=== PATIENT | female | born 1945 | race Caucasian/White ===

== ENCOUNTER 2019-01-18 12:17 | Emergency (ER) | payer MEDICARE, OTHER ==
[~2019-01-18] VITALS: Ht 163.8 cm; Wt 75.6 kg
--- NOTE | 2019-01-18 12:41 | EKG ---
[address] [address] Test Date: 2019-01-18 Test Time: 12:39:14 Pat Name: ANT BECKFORD Department: Room: Gender: F Supervisor Frame Assembly: DOUGIE : 1945 Requested By: JONNY BLEDSOE Order Number: [id number] Reading MD: Measurements Intervals [place] Rate: 77 P: 46 VT: 172 QRS: -8 QRSD: 82 T: 19 QT: 378 QTc: 430 Interpretive Statements SINUS RHYTHM LEFT ATRIAL ABNORMALITY LEFTWARD AXIS ABNORMAL ECG RI6.01 No previous ECG available for comparison
[2019-01-18] MEDS ORDERED: IV NORMAL SALINE 1,000ML 1,000 ML IV SCH (12:50)
[2019-01-18 13:23] LABS: BASO # 0.1 x10^3/uL (0.0-0.2); BASO % 1 % (0-3); EOS # 0.1 x10^3/uL (0.0-0.7); EOS % 2 % (0-3); HEMOGLOBIN 13.7 g/dL (12.0-15.5); LYMPH # 1.4 x10^3/uL (1.0-4.8); LYMPH % 16 % (24-48); MEAN CORPUSCULAR HEMOGLOBIN 30 pg (25-35); MEAN CORPUSCULAR HGB CONC 34 g/dL (31-37); MEAN CORPUSCULAR VOLUME 90 fL (79-100); MONO # 0.5 x10^3/uL (0.0-1.1); MONO % 6 % (0-9); NEUT # 6.6 x10^3uL (1.8-7.7); NEUT % 76 % (31-73); PLATELET COUNT 409 x10^3/uL (140-400); RED BLOOD COUNT 4.55 x10^6/uL (3.50-5.40); RED CELL DISTRIBUTION WIDTH 13.1 % (11.5-14.5); WHITE BLOOD COUNT 8.8 x10^3/uL (4.0-11.0)
[2019-01-18 13:37] LABS: ALBUMIN 3.5 g/dL (3.4-5.0); CALCIUM 8.8 mg/dL (8.5-10.1); CREATININE 0.8 mg/dL (0.6-1.0); DIRECT BILIRUBIN 0.1 mg/dL (0.0-0.2); GFR 70.3; MAGNESIUM 1.8 mg/dL (1.8-2.4); POTASSIUM 3.5 mmol/L (3.5-5.1); TOTAL BILIRUBIN 0.4 mg/dL (0.2-1.0); TOTAL PROTEIN 7.3 g/dL (6.4-8.2)
[2019-01-18 14:05] LABS: BACTERIA,URINE 0 /HPF (0-FEW); BILIRUBIN,URINE NEG (NEG); CLARITY,URINE CLEAR; COLOR,URINE YELLOW; GLUCOSE,URINE NEG (NEG); NITRITE,URINE NEG (NEG); RBC,URINE RARE /HPF (0-2); SQUAMOUS EPITHELIAL CELL,UR OCC /LPF; UROBILINOGEN,URINE 0.2 mg/dL (0.2 mg/dL); WBC,URINE RARE /HPF (0-4)
[2019-01-18] MEDS ORDERED: ONDA4TAB12 PO (14:26)
--- NOTE | 2019-01-18 14:26 | PHYS DOC ---
Past History Past Medical History: Constipation, COPD, High Cholesterol, Hypertension Past Surgical History: Other Additional Past Surgical Histo: left knee Alcohol Use: None Drug Use: None Adult General Chief Complaint Chief Complaint: DIZZY/LIGHT HEADED HPI HPI Patient is a 74-year-old female who presents with complaint of feeling some lightheadedness over the last couple of days. She denies any actual dizziness and has had no syncopal episode. She denies chest pain or shortness of breath. She does indicate that she's had some mild nausea but has had no vomiting. She states that she has been able to eat normally. She denies any diarrhea. She also denies any abdominal pain. Patient has had no lateralizing weakness or headache.[] Review of Systems Review of Systems Constitutional: Denies fever or chills [] Eyes: Denies change in visual acuity, redness, or eye pain [] Respiratory: Denies cough or shortness of breath [] Cardiovascular: No additional information not addressed in HPI [] GI: Denies abdominal pain, vomiting or diarrhea. Patient does report some nausea. [] : Denies dysuria or hematuria [] Neurologic: Denies headache, focal weakness or sensory changes. Patient does complain of lightheadedness but no vertigo. [] All other systems were reviewed and found to be within normal limits, except as documented in this note. Current Medications Current Medications Current Medications Medications (Trade) Dose Ordered Sig/Gurpreet Start Time Stop Time Status Last Admin Dose Admin Sodium Chloride 1,000 ml @ 1,000 mls/hr Q1H 01/18/19 12:50 01/18/19 13:49 DC 01/18/19 13:22 1,000 MLS/HR Allergies Allergies Allergies Coded Allergies Type Severity Reaction Last Updated Verified Penicillins Allergy Unknown 01/18/19 Yes Sulfa (Sulfonamide Antibiotics) Allergy Unknown 01/18/19 Yes ciprofloxacin Allergy Unknown 01/18/19 Yes Physical Exam Physical Exam Constitutional: Well developed, well nourished, no acute distress, non-toxic appearance. [] HENT: Normocephalic, atraumatic, bilateral external ears normal, oropharynx moist, no oral exudates, nose normal. [] Eyes: PERRLA, EOMI, conjunctiva normal, no discharge. [] Neck: Normal range of motion, no tenderness, supple, no stridor. [] Cardiovascular: Regular rate and rhythm[] Lungs & Thorax: Bilateral breath sounds clear to auscultation [] Abdomen: Bowel sounds normal, soft, no tenderness. [] Skin: Warm, dry, no erythema, no rash. [] Extremities: No tenderness, no cyanosis, no clubbing, ROM intact. [] Neurologic: Alert and oriented X 3, normal motor function, normal sensory function, no focal deficits noted. [] Current Patient Data Vital Signs Vital Signs Date Time Temp Pulse Resp B/P (MAP) Pulse Ox O2 Delivery O2 Flow Rate FiO2 01/18/19 13:56 72 13 117/84 (95) 98 Room Air 01/18/19 12:28 97.5 Lab Results Laboratory Tests Test 01/18/19 13:03 01/18/19 13:08 Urine Collection Type Unknown Urine Color Yellow Urine Clarity Clear Urine pH 6.0 Urine Specific [place] <=1.005 Urine Protein Neg (NEG-TRACE) Urine Glucose (UA) Neg mg/dL (NEG) Urine Ketones (Stick) Neg mg/dL (NEG) Urine Blood Neg (NEG) Urine Nitrite Neg (NEG) Urine Bilirubin Neg (NEG) Urine Urobilinogen Dipstick 0.2 mg/dL (0.2 mg/dL) Urine Leukocyte Esterase Neg (NEG) Urine RBC Rare /HPF (0-2) Urine WBC Rare /HPF (0-4) Urine Squamous Epithelial Cells Occ /LPF Urine Bacteria 0 /HPF (0-FEW) White Blood Count 8.8 x10^3/uL (4.0-11.0) Red Blood Count 4.55 x10^6/uL (3.50-5.40) Hemoglobin 13.7 g/dL (12.0-15.5) Hematocrit 41.0 % (36.0-47.0) Mean Corpuscular Volume 90 fL (79-100) Mean Corpuscular Hemoglobin 30 pg (25-35) Mean Corpuscular Hemoglobin Concent 34 g/dL (31-37) Red Cell Distribution Width 13.1 % (11.5-14.5) Platelet Count 409 x10^3/uL (140-400) H Neutrophils (%) (Auto) 76 % (31-73) H Lymphocytes (%) (Auto) 16 % (24-48) L Monocytes (%) (Auto) 6 % (0-9) Eosinophils (%) (Auto) 2 % (0-3) Basophils (%) (Auto) 1 % (0-3) Neutrophils # (Auto) 6.6 x10^3uL (1.8-7.7) Lymphocytes # (Auto) 1.4 x10^3/uL (1.0-4.8) Monocytes # (Auto) 0.5 x10^3/uL (0.0-1.1) Eosinophils # (Auto) 0.1 x10^3/uL (0.0-0.7) Basophils # (Auto) 0.1 x10^3/uL (0.0-0.2) Sodium Level 132 mmol/L (136-145) L Potassium Level 3.5 mmol/L (3.5-5.1) Chloride Level 95 mmol/L (98-107) L Carbon Dioxide Level 24 mmol/L (21-32) Anion Gap 13 (6-14) Blood Urea Nitrogen 12 mg/dL (7-20) Creatinine 0.8 mg/dL (0.6-1.0) Estimated GFR (Cockcroft-Gault) 70.3 Glucose Level 94 mg/dL (70-99) Calcium Level 8.8 mg/dL (8.5-10.1) Magnesium Level 1.8 mg/dL (1.8-2.4) Total Bilirubin 0.4 mg/dL (0.2-1.0) Direct Bilirubin 0.1 mg/dL (0.0-0.2) Aspartate Amino Transferase (AST) 18 U/L (15-37) Alanine Aminotransferase (ALT) 18 U/L (14-59) Alkaline Phosphatase 99 U/L (46-116) Troponin I Quantitative < 0.017 ng/mL (0-0.055) Total Protein 7.3 g/dL (6.4-8.2) Albumin 3.5 g/dL (3.4-5.0) EKG EKG EKG demonstrates a normal sinus rhythm with no significant ST segment abnormalities.[] Radiology/Procedures Radiology/Procedures [] Course & Med Decision Making Course & Med Decision Making Pertinent Labs and Imaging studies reviewed. (See chart for details) [] Dragon Disclaimer Dragon Disclaimer This electronic medical record was generated, in whole or in part, using a voice recognition dictation system. Departure Departure: Impression: Primary Impression: Lightheadedness Additional Impression: Nausea Disposition: 01 HOME, SELF-CARE Condition: STABLE Referrals: PALAK JEWELL MD (PCP) Patient Instructions: Dizziness, Nausea, Adult Additional Instructions: Follow-up with your primary care provider in the next few days. Scripts Ondansetron (ONDANSETRON ODT) 4 Mg Tab.rapdis 1 TAB PO PRN Q6-8HRS PRN for NAUSEA, #12 TAB Prov: JONNY BLEDSOE Jr. DO 01/18/19 Problem Qualifiers JONNY BLEDSOE Jr. DO Jan 18, 2019 14:26
[2019-01-18] MEDS ORDERED: LIDO:MAALOX 1:1 20 ML SINGLE DOSE. ONE (14:39)
[2019-01-18 14:43] VITALS: BP 123/76
[2019-01-18] MEDS ORDERED: LIDO:MAALOX 1:1 20 ML SINGLE DOSE. PO ONE (14:45)
== END 2019-01-18 14:45 | disposition home or self-care (01) ==
LOC: ER 12:17
DX: R42 Dizziness and giddiness (principal); R11.0 Nausea; J44.9 Chronic obstructive pulmonary disease, unspecified; E78.00 Pure hypercholesterolemia, unspecified; I10 Essential (primary) hypertension; Z88.0 Allergy status to penicillin; Z88.2 Allergy status to sulfonamides; Z88.1 Allergy status to other antibiotic agents
CPT/HCPCS: 36415; 80048; 80076; 81001; 83735; 84484; 85025; 93005; 96360; 99285-25; J7030

== ENCOUNTER → 2019-01-18 | Outpatient (CLI) | payer MEDICARE, OTHER ==
[~2019-01-18] MED LIST: IOHEXOL 240 MG/ML 50ML VIAL. ONE; ONDA4TAB12 PO
[2019-01-18 14:43] VITALS: BP 123/76
[2019-01-18 18:43] LABS: BASO # 0.1 x10^3/uL (0.0-0.2); BASO % 1 % (0-3); EOS # 0.1 x10^3/uL (0.0-0.7); EOS % 2 % (0-3); HEMATOCRIT 41.1 % (36.0-47.0); LYMPH # 1.7 x10^3/uL (1.0-4.8); LYMPH % 20 % (24-48); MEAN CORPUSCULAR HEMOGLOBIN 30 pg (25-35); MEAN CORPUSCULAR HGB CONC 34 g/dL (31-37); MEAN CORPUSCULAR VOLUME 89 fL (79-100); MONO # 0.7 x10^3/uL (0.0-1.1); MONO % 8 % (0-9); NEUT # 6.1 x10^3uL (1.8-7.7); NEUT % 70 % (31-73); PLATELET COUNT 410 x10^3/uL (140-400); RED BLOOD COUNT 4.61 x10^6/uL (3.50-5.40); RED CELL DISTRIBUTION WIDTH 13.1 % (11.5-14.5); WHITE BLOOD COUNT 8.7 x10^3/uL (4.0-11.0)
--- NOTE | 2019-01-18 18:51 | RAD ---
Exam: CT abdomen and pelvis without contrast INDICATION: Constipation TECHNIQUE: Sequential axial images through the abdomen and pelvis obtained without IV contrast. Sagittal and coronal reformatted images were reconstructed from the axial data and reviewed. Comparisons: None FINDINGS: Heart size is normal. No pericardial effusion. There is a moderate-sized hiatal hernia. Several calcified granulomata are noted at the lung bases. No pleural effusion. Evaluation of the solid organs is limited secondary to noncontrast technique. Liver, spleen, pancreas, gallbladder and adrenals are unremarkable. Numerous parapelvic cyst noted on the left. These are incompletely evaluated on noncontrast study. No renal or ureteral calculi are identified. No perinephric inflammation or hydronephrosis. Bladder is decompressed not well evaluated. Uterus is not enlarged. No abnormal adnexal mass. Diverticulosis is noted throughout the sigmoid and descending colon without evidence of acute diverticulitis. Remainder of the large and small bowel are unremarkable. No obstruction. No free intra-abdominal air or fluid. There is a diverticulum arising off the second portion of the duodenum abutting the pancreatic head. Abdominal aorta has a normal course and caliber. No enlarged intra-abdominal lymph nodes are identified. No suspicious osseous lesions or acute fractures. IMPRESSION: 1. No significant stool burden. 2. Diverticulosis without evidence of acute diverticulitis. 3. Numerous parapelvic cysts on the left which are incompletely characterized on noncontrast study. 4. Moderate-sized hiatal hernia. Exposure: One or more of the following in the visualized dose reduction techniques were utilized for this examination: 1. Automated exposure control 2. Adjustment of the MA and/or KV according to patient size 3. Use of iterative of reconstructive technique Electronically signed by: Eveertt Carr MD (01/18/2019 6:48 PM) [facility]
[2019-01-18 18:57] LABS: ALBUMIN 3.5 g/dL (3.4-5.0); ALBUMIN/GLOBULIN RATIO 0.9 (1.0-1.7); C REACTIVE PROTEIN 5.8 mg/L (0-3.3); CALCIUM 8.9 mg/dL (8.5-10.1); CREATININE 0.9 mg/dL (0.6-1.0); GFR 61.4; POTASSIUM 3.3 mmol/L (3.5-5.1); TOTAL BILIRUBIN 0.6 mg/dL (0.2-1.0); TOTAL PROTEIN 7.2 g/dL (6.4-8.2)
[2019-01-18 18:58] LABS: BACTERIA,URINE FEW /HPF (0-FEW); BILIRUBIN,URINE NEG (NEG); CLARITY,URINE CLEAR; COLOR,URINE YELLOW; GLUCOSE,URINE NEG (NEG); NITRITE,URINE NEG (NEG); RBC,URINE RARE /HPF (0-2); UROBILINOGEN,URINE 0.2 mg/dL (0.2 mg/dL); WBC,URINE OCC /HPF (0-4)
[2019-01-18 18:59] LABS: SQUAMOUS EPITHELIAL CELL,UR OCC /LPF
== END | disposition home or self-care (01) ==
LOC: CT 17:47
PROVIDERS: ATTEND Registered Nurse
DX: K57.30 Diverticulosis of large intestine without perforation or abscess without bleeding (principal); K44.9 Diaphragmatic hernia without obstruction or gangrene; N94.89 Other specified conditions associated with female genital organs and menstrual cycle; K59.00 Constipation, unspecified
CPT/HCPCS: 36415; 74176; 80053; 81001; 82150; 83690; 85025; 86140

== ENCOUNTER 2020-07-03 20:02 | Emergency (ER) | payer MEDICARE, OTHER ==
[~2020-07-03] VITALS: Ht 160 cm; Wt 68.0 kg
[~2020-07-03 20:02] MED LIST changes: -IOHEXOL 240 MG/ML 50ML VIAL. ONE
[2020-07-03] MEDS ORDERED: MORPHINE SULFATE 2 MG/ML DISP.SYRIN. IV/SQ PRN (20:15)
[2020-07-03] MEDS ORDERED: IV NORMAL SALINE 1,000ML 1,000 ML IV SCH (20:15)
--- NOTE | 2020-07-03 20:47 | RAD ---
EXAM: Chest, single view. HISTORY: Chest pain. COMPARISON: None. FINDINGS: A frontal view of the chest is obtained. There is no infiltrate, pleural effusion or pneumo thorax. The heart is normal in size. There is a moderate hiatal hernia. There are multiple scattered calcified granulomas. There is a nodule overlying the right upper lobe which is also likely calcified granuloma. IMPRESSION: 1. No acute pulmonary finding. 2. Healed granulomatous disease. Electronically signed by: Hazel Sanchez MD (07/03/2020 8:45 PM) [facility]
--- NOTE | 2020-07-03 20:53 | PHYS DOC ---
Past History Past Medical History: Constipation, COPD, High Cholesterol, Hypertension (AL PALACIOS APRN) Past Surgical History: Hip Replacement, Other Additional Past Surgical Histo: left knee (AL PALACIOS APRN) Alcohol Use: None Drug Use: None (AL PALACIOS APRN) General Adult EDM: Chief Complaint: CHEST PAIN HPI: HPI: Patient is a 75-year-old female who presents with lower abdominal pain, epigastric pain , dysuria. Patient was recently diagnosed with a UTI and placed on nitrofurantoin. Patient states that she has had nausea since she started the medication and does not feel like it is helped with her UTI symptoms. Patient states that she called the ambulance prior to arrival but then ended up driving herself into the emergency room. Patient has a history of COPD and hype rtension. (AL PALACIOS APRN) Review of Systems: Review of Systems: Constitutional: Denies fever or chills Eyes: Denies change in visual acuity HENT: Denies nasal congestion or sore throat Respiratory: Denies cough or shortness of breath Cardiovascular: Denies chest pain or edema GI: Reports lower abdominal pain, nausea. Denies vomiting, bloody stools or diarrhea : Reports dysuria Musculoskeletal: Denies back pain or joint pain Integument: Denies rash Neurologic: Denies headache, focal weakness or sensory changes Endocrine: Denies polyuria or polydipsia Lymphatic: Denies swollen glands Psychiatric: Denies depression or anxiety (AL PALACIOS APRN) Current Medications: Current Meds: Current Medications Medications (Trade) Dose Ordered Sig/Gurpreet Start Time Stop Time Status Last Admin Dose Admin Morphine Sulfate (Morphine 2mg Syringe) 2 mg PRN Q15MIN PRN 07/03/20 20:15 07/04/20 20:14 Sodium Chloride 1,000 ml @ 1,000 mls/hr Q1H 07/03/20 20:15 07/03/20 21:14 (AL PALACIOS APRN) Allergies: Allergies: Allergies Coded Allergies Type Severity Reaction Last Updated Verified Penicillins Allergy Unknown 07/03/20 Yes Sulfa (Sulfonamide Antibiotics) Allergy Unknown 07/03/20 Yes ciprofloxacin Allergy Unknown 07/03/20 Yes (AL PALACIOS APRN) Physical Exam: PE: Constitutional: Well developed, well nourished, no acute distress, non-toxic elis earance. [] HENT: Normocephalic, atraumatic, bilateral external ears normal, oropharynx moist, no oral exudates, nose normal. [] Eyes: PERRLA, EOMI, conjunctiva normal, no discharge. [] Neck: Normal range of motion, no tenderness, supple, no stridor. [] Cardiovascular:Heart rate regular rhythm, no murmur [] Lungs & Thorax: Bilateral breath sounds clear to auscultation [] Abdomen: Bowel sounds normal, soft, no tenderness Skin: Warm, dry, no erythema, no rash. [] Back: No tenderness, no CVA tenderness. [] Extremities: No tenderness, ROM intact, no edema. [] Neurologic: Alert and oriented X 3, normal motor function, normal sensory function, no focal deficits noted. [] Psychologic: Affect normal, judgement normal, mood normal. [] (AL PALACIOS APRN) Current Patient Data: Vital Signs: Vital Signs Date Time Temp Pulse Resp B/P (MAP) Pulse Ox O2 Delivery O2 Flow Rate FiO2 07/03/20 20:33 97.5 77 17 139/81 (100) 98 (AL PALACIOS APRN) EKG: EKG: [] Sinus rhythm. Heart rate 76 bpm (AL PALACIOS APRN) Radiology/Procedures: Radiology/Procedures: [] (AL PALACIOS APRN) Heart Score: C/O Chest Pain: Yes HEART Score for Chest Pain: HEART Score for Chest Pain Response (Comments) Value History Moderately Suspicious 1 ECG Normal 0 Age > 65 2 Risk Factors 1 or 2 Risk Factors 1 Troponin < Normal Limit 0 Total 4 Risk Factors: Risk Factors: DM, Current or recent (<one month) smoker, HTN, HLP, family history of CAD, obesity. Risk Scores: Score 0 - 3: 2.5% MACE over next 6 weeks - Discharge Home Score 4 - 6: 20.3% MACE over next 6 weeks - Admit for Clinical Observation Score 7 - 10: 72.7% MACE over next 6 weeks - Early Invasive Strategies (AL PALACIOS APRN) Course & Med Decision Making: Course & Med Decision Making Pertinent Labs and Imaging studies reviewed. (See chart for details) [] 75-year-old female presents with lower abdominal pain, burning with urination, epigastric pain. patient was recently put on Macrobid for UTI. Patient is reporting nausea and burning epigastric pain. Zofran and Pepcid ordered for nausea. EKG shows sinus rhythm. All labs are unremarkable. Heart score of 4. Troponin is negative. Patient most likely has having GI symptoms from UTI. Patient states that her nausea and epigastric pain has improved since medications administered.Patient sent home with a prescription for Zofran for nausea. Instructed patient to continue taking antibiotic that was prescribed by her PCP. Patient to follow-up with her PCP if she continues to have nausea and acid reflux. Patient is hemodynamically stable. Patient is appreciative and okay with discharge plan. (AL PALACIOS APRN) Dragon Disclaimer: Dragon Disclaimer: This electronic medical record was generated, in whole or in part, using a voice recognition dictation system. (AL PALACIOS APRN) Attending Co-Sign The patient was seen and interviewed as well as examined at the bedside. The chart was reviewed. The case was discussed. Agree with the plan of care. (BRENDEN WILLIAM DO) Departure Departure: Impression: Primary Impression: Epigastric abdominal pain Disposition: 01 HOME / SELF CARE / HOMELESS Condition: STABLE Referrals: PALAK JEWELL MD (PCP) Patient Instructions: Urinary Tract Infection Additional Instructions: You were seen in the emergency room for nausea, epigastric pain, burning with urination. Your EKG showed sinus rhythm. All of your labs were unremarkable. Please continue taking the antibiotic that was prescribed for UTI. Please call your PCP in the morning to follow-up. Return to the emergency room with worsening symptoms or concerns. EMERGENCY DEPARTMENT GENERAL DISCHARGE INSTRUCTIONS Thank you for coming to [facility] (ED) today and trusting us with you care. We trust that you had a positivie experience in our Emergency Department. If you wish to speak to the department management, you may call the director at [phone]. YOUR FOLLOW UP INSTRUCTIONS ARE FOLLOWS: 1. Do you have a private Doctor? If you do not have a private doctor, please ask for a resource list of physicians or clinics that may be able to assist you with follow up care. 2. The Emergency Physician has interpreted your x-rays. The X-Ray specialist will also review them. If there is a change in the findings, you will be notified in 48 hours when at all possible. 3. A lab test or culture has been done, your results will be reviewed and you will be notified if you need a change in treatment. ADDITIONAL INSTRUCTIONS AND INFORMATION: 1. Your care today has been supervised by a physician who is specially trained in emergency care. Many problems require more than one evaluation for a complete diagnosis and treatment. We recommend that you schedule your follow up appointment as recommended to ensure complete treatment of you illness or injury. If you are unable to obtain follow up care and continue to have a problem, or if your condition worsens, we recommend that you return to the ED. 2. We are not able to safely determine your condition over the phone nor are we able to give sound medical advice over the phone. For these safety reasons, if you call for medical advice we will ask you to come to the ED for further evaluation. 3. If you have any questions regarding these discharge instructions please call the ED at [phone]. SAFETY INFORMATION: In the interest of safety, wellness, and injury prevention; we encourage you to wear your sealbelt, if you smoke; quite smoking, and we encourage family to use a protective helmet for bicycling and other sporting events that present an increased risk for head injury. IF YOUR SYMPTOMS WORSEN OR NEW SYMPTOMS DEVELOP, OR YOU HAVE CONCERNS ABOUT YOUR CONDITION; OR IF YOUR CONDITION WORSENS WHILE YOU ARE WAITING FOR YOUR FOLLOW UP APPOINTMENT; EITHER CONTACT YOUR PRIMARY CARE DOCTOR, THE PHYSICIAN WHOSE NAME AND NUMBER YOU WERE GIVEN, OR RETURN TO THE ED IMMEDIATELY. Scripts Phenazopyridine Hcl (PHENAZOPYRIDINE HCL) 200 Mg Tablet 1 TAB PO TID for urinary discomfort for 2 Days, #6 TAB 0 Refills after food Prov: AL PALACIOS APRN 07/03/20 Ondansetron Hcl (ZOFRAN) 4 Mg Tablet 4 MG PO TID PRN PRN for NAUSEA, #9 TAB Prov: AL PALACIOS APRN 07/03/20 AL PALACIOS APRN July 03, 2020 20:53 BRENDEN WILLIAM DO July 07, 2020 06:33
[2020-07-03] MEDS ORDERED: ONDANSETRON PF 4 MG/2 ML VIAL. IVP ONE (21:00)
[2020-07-03] MEDS ORDERED: FAMOTIDINE 20 MG/2 ML VIAL IVP ONE (21:00)
[2020-07-03 21:42] LABS: BASO # 0.1 x10^3/uL (0.0-0.2); BASO % 1 % (0-3); EOS # 0.5 x10^3/uL (0.0-0.7); EOS % 7 % (0-3); LYMPH # 1.9 x10^3/uL (1.0-4.8); LYMPH % 28 % (24-48); MEAN CORPUSCULAR HEMOGLOBIN 32 pg (25-35); MEAN CORPUSCULAR HGB CONC 34 g/dL (31-37); MEAN CORPUSCULAR VOLUME 93 fL (79-100); MONO # 0.6 x10^3/uL (0.0-1.1); MONO % 8 % (0-9); NEUT # 3.8 x10^3uL (1.8-7.7); NEUT % 56 % (31-73); PLATELET COUNT 315 x10^3/uL (140-400); RED BLOOD COUNT 4.42 x10^6/uL (3.50-5.40); RED CELL DISTRIBUTION WIDTH 13.3 % (11.5-14.5); WHITE BLOOD COUNT 6.8 x10^3/uL (4.0-11.0)
[2020-07-03 21:56] LABS: CALCIUM 9.6 mg/dL (8.5-10.1); GFR 54.2; POTASSIUM 4.1 mmol/L (3.5-5.1)
[2020-07-03 22:11] LABS: ALBUMIN 4.1 g/dL (3.4-5.0); ALBUMIN/GLOBULIN RATIO 1.4 (1.0-1.7); TOTAL BILIRUBIN 0.8 mg/dL (0.2-1.0); TOTAL PROTEIN 7.1 g/dL (6.4-8.2)
[2020-07-03] MEDS ORDERED: ONDA4TAB7 PO (22:32)
[2020-07-03] MEDS ORDERED: PHEN-444 PO (22:35)
[2020-07-03] MEDS ORDERED: PHENAZOPYRIDINE 200 MG TABLET. PO ONE (22:45)
[2020-07-03 22:56] VITALS: BP 123/83
[2020-07-03 23:09] LABS: BACTERIA,URINE 0 /HPF (0-FEW); BILIRUBIN,URINE NEG (NEG); CLARITY,URINE CLEAR; COLOR,URINE YELLOW; GLUCOSE,URINE NEG (NEG); NITRITE,URINE NEG (NEG); RBC,URINE 0 /HPF (0-2); SQUAMOUS EPITHELIAL CELL,UR OCC /LPF; UROBILINOGEN,URINE 0.2 mg/dL (0.2 mg/dL); WBC,URINE 0 /HPF (0-4)
--- NOTE | 2020-07-03 23:28 | EKG ---
[address] [address] Test Date: 2020-07-03 Test Time: 21:45:25 Pat Name: ANT BECKFORD Department: Room: Gender: F Telemarketing Fundraiser: : 1945 Requested By: AL PALACIOS Order Number: [id number] Reading MD: Measurements Intervals [place] Rate: 76 P: 50 SC: 170 QRS: -12 QRSD: 86 T: 19 QT: 392 QTc: 445 Interpretive Statements SINUS RHYTHM LEFTWARD AXIS OTHERWISE NORMAL ECG RI6.02 No previous ECG available for comparison
== END 2020-07-03 23:25 | disposition home or self-care (01) ==
LOC: ER 20:02
DX: R10.13 Epigastric pain (principal); J44.9 Chronic obstructive pulmonary disease, unspecified; E78.5 Hyperlipidemia, unspecified; I10 Essential (primary) hypertension; Z88.0 Allergy status to penicillin; Z88.1 Allergy status to other antibiotic agents
CPT/HCPCS: 36415; 71045; 80053; 81001; 82553; 83690; 83735; 83880; 84484; 85025; 85610; 85730; 93005; 96361; 96374; 96375; 99285; J2405; J3490; J7030

== ENCOUNTER 2020-08-13 14:29 | Emergency (ER) | payer MEDICARE ==
[~2020-08-13] VITALS: Ht 167.6 cm; Wt 68.1 kg
[~2020-08-13 14:29] MED LIST changes: +ONDA4TAB7 PO; +PHEN-444 PO
[2020-08-13 14:56] VITALS: BP 142/87
--- NOTE | 2020-08-13 15:02 | PHYS DOC ---
Past History Past Medical History: Constipation, COPD, High Cholesterol, Hypertension Past Surgical History: Hip Replacement, Other Additional Past Surgical Histo: left knee Alcohol Use: None Drug Use: None General Adult EDM: Chief Complaint: ABDOMINAL PAIN HPI: HPI: 75-year-old female presents via EMS with abdominal pain and stating that she needs to go to . The patient tells me that she spoke with her GI surgeon earlier today and he told her to go to the nearest ER and then go to . The patient thought that that meant she would come here by EMS and then leave in the same ambulance and go straight to . She has had a longstanding hiatal hernia that has been getting worse and now needs surgery. She has provided us the name of the surgeon and asked that we call him. Review of Systems: Review of Systems: Constitutional: Denies fever or chills Eyes: Denies change in visual acuity HENT: Denies nasal congestion or sore throat Respiratory: Denies cough or shortness of breath Cardiovascular: Denies chest pain or edema GI: Upper abdominal pain, nausea, vomiting earlier today. : Denies dysuria Musculoskeletal: Denies back pain or joint pain Integument: Denies rash Neurologic: Denies headache, focal weakness or sensory changes Endocrine: Denies polyuria or polydipsia Lymphatic: Denies swollen glands Psychiatric: Denies depression or anxiety Allergies: Allergies: Allergies Coded Allergies Type Severity Reaction Last Updated Verified Penicillins Allergy Unknown 07/03/20 Yes Sulfa (Sulfonamide Antibiotics) Allergy Unknown 07/03/20 Yes ciprofloxacin Allergy Unknown 07/03/20 Yes Physical Exam: PE: Constitutional: Well developed, well nourished, no acute distress, non-toxic appearance. [] HENT: Normocephalic, atraumatic, bilateral external ears normal, oropharynx moist, no oral exudates, nose normal. [] Eyes: PERRLA, EOMI, conjunctiva normal, no discharge. [] Neck: Normal range of motion, no tenderness, supple, no stridor. [] Cardiovascular: Heart rate regular rhythm, no murmur [] Lungs & Thorax: Bilateral breath sounds clear to auscultation [] Abdomen: Bowel sounds normal, soft, epigastric tenderness, no masses, no pulsatile masses. [] Skin: Warm, dry, no erythema, no rash. [] Back: No tenderness, no CVA tenderness. [] Extremities: No tenderness, no cyanosis, no clubbing, ROM intact, no edema. [] Neurologic: Alert and oriented X 3, normal motor function, normal sensory function, no focal deficits noted. [] Psychologic: Affect normal, judgement normal, mood frustrated. [] EKG: EKG: [] Radiology/Procedures: Radiology/Procedures: [] Heart Score: C/O Chest Pain: N/A Risk Factors: Risk Factors: DM, Current or recent (<one month) smoker, HTN, HLP, family history of CAD, obesity. Risk Scores: Score 0 - 3: 2.5% MACE over next 6 weeks - Discharge Home Score 4 - 6: 20.3% MACE over next 6 weeks - Admit for Clinical Observation Score 7 - 10: 72.7% MACE over next 6 weeks - Early Invasive Strategies Course & Med Decision Making: Course & Med Decision Making Pertinent Labs and Imaging studies reviewed. (See chart for details) There is some initial confusion with patient's story. We were able to get hold of the surgeon, Dr. Bernardo and he confirmed that he told the patient to call EMS because she had no transportation and asked that she be brought to . He did not mention telling her to come to the nearest ER first. He did state that he does want the patient to be transferred to as soon as possible because he expects to operate on her today or tomorrow. He was not concerned with us drawing blood or becoming any evaluation other than her vital signs as long as they were normal. Her vital signs are within normal limits. We will transfer her to with the aforementioned doctor as the accepting physician. S he will go by ambulance. [] Dragon Disclaimer: Dragon Disclaimer: This electronic medical record was generated, in whole or in part, using a voice recognition dictation system. Departure Departure: Impression: Primary Impression: Abdominal pain Disposition: 02 SHORT TERM HOSPITAL Condition: STABLE Referrals: PALAK JEWELL MD (PCP) BRENDEN WILLIAM DO Aug 13, 2020 15:02
== END 2020-08-13 16:37 | disposition short-term general hospital (02) ==
LOC: ER 14:29
DX: R10.13 Epigastric pain (principal); R11.2 Nausea with vomiting, unspecified; J44.9 Chronic obstructive pulmonary disease, unspecified; E78.00 Pure hypercholesterolemia, unspecified; I10 Essential (primary) hypertension; Z88.0 Allergy status to penicillin; Z88.2 Allergy status to sulfonamides; Z88.1 Allergy status to other antibiotic agents
CPT/HCPCS: 99283; 99285

== ENCOUNTER 2020-08-26 03:58 | Emergency (ER) | payer MEDICARE, OTHER ==
[~2020-08-26] VITALS: Ht 160 cm; Wt 63.3 kg
[2020-08-26 03:58] VITALS: BP 113/72
--- NOTE | 2020-08-26 04:03 | PHYS DOC ---
Past History Past Medical History: No Pertinent History, Anxiety, Arthritis Additional Past Surgical Histo: left knee Past Surgical History Hernia Surgery 07/2020 Alcohol Use: None Drug Use: None General Adult HPI: HPI: "....I had surgery on my Hernia at .. a couple weeks ago.. the ashwin have always hurt since surgery.. and I did see some in the clinic a couple days ago.. but I started getting abdomen pain worse and again tonight... so I came in to get checked out..."..." Maybe I got an infection..." Patient is a 75 year old female who presents with above hx and complaints of abdomen pain since 1900 hrs. . Pt. concern she has infection of her surgery site. Pt. previously followed at with Dr. Bernardo. Pt. seen two days ago at clinic. Reportedly negative work up at that time. Pt. presents to [facility] with essentially same complaints. No fever or chills. No history of bad food intake. Reportedly has had a stool last couple days. Patient localizes her pain more in his right lower quadrant. There is some very mild inflammation along suture line at staple sites. But no obvious infection or drainage. Patient denies any recent travel outside [facility] area. No specific ill contacts. No history of trauma. No history immunosuppression. Review of Systems: Review of Systems: Constitutional: Denies fever or chills Eyes: Denies change in visual acuity HENT: Denies nasal congestion or sore throat Respiratory: Denies cough or shortness of breath Cardiovascular: Denies chest pain or edema GI: Complains of lower right abdominal pain,. Denies nausea, vomiting, bloody stools or diarrhea. Some epigastric pain which she states is reflux. : Denies dysuria Musculoskeletal: Denies back pain or joint pain Integument: Denies rash Neurologic: Denies headache, focal weakness or sensory changes Endocrine: Denies polyuria or polydipsia Lymphatic: Denies swollen glands Psychiatric: Denies depression or anxiety Family History: Family History: Noncontributory to presentation Current Medications: Current Meds: See nursing for home meds Allergies: Allergies: Allergies Coded Allergies Type Severity Reaction Last Updated Verified Penicillins Allergy Unknown 07/03/20 Yes Sulfa (Sulfonamide Antibiotics) Allergy Unknown 07/03/20 Yes ciprofloxacin Allergy Unknown 07/03/20 Yes Physical Exam: PE: Constitutional: Mild distress, non-toxic appearance. [] HENT: Normocephalic, atraumatic, bilateral external ears normal, oropharynx moist, no oral exudates, nose normal. [] Eyes: PERRLA, EOMI, conjunctiva normal, no discharge. [] Neck: Normal range of motion, no tenderness, supple, no stridor. [] Cardiovascular:Heart rate regular rhythm, no murmur [. PMI to the left] Lungs & Thorax: Bilateral breath sounds "apex few basilar crackles on auscultation [] Abdomen: Bowel sounds decreased, soft, mild suture line tenderness, mild erythema at suture line and ashwin, no drainage, no obvious signs of infection no striations, distended abdomen some localization to right lower quadrant., no masses, no pulsatile masses. [] Multiple old surgery scars Skin: Warm, dry, no erythema, no rash. Poor turgor Back: No tenderness, no CVA tenderness. [] Extremities: No tenderness, no cyanosis, no clubbing, ROM intact, no edema. No psoas sign. No cording. Neurologic: Alert and oriented X 3 moves all extremities as requested, distal sensory,, no focal deficits noted. [] Psychologic: Affect anxious, judgement normal, mood normal. [] EKG: EKG: [] Radiology/Procedures: Radiology/Procedures: [][place] [address] IMAGING REPORT Signed PATIENT: ANT BECKFORD ACCOUNT: [id number] : 1945 LOCATION: ER AGE: 75 SEX: F EXAM STATUS: PRE ER ORD. PHYSICIAN: ANGELINA TORO MD REASON: abdomen pain, recent surgery PROCEDURE: ACUTE ABDOMEN SERIES XR ABDOMEN COMP ACUTE INDICATION: Reason: abdomen pain, recent surgery / Spl. Instructions: / History: . COMPARISON STUDY: None. FINDINGS: Lungs: Normal lung volume. No pulmonary mass or consolidation. Calcified pulmonary granulomas. The tracheobronchial tree and hilar structures are normal. Pleura: No pleural effusion or pneumothorax. Heart and Mediastinum: The cardiomediastinal silhouette is normal. Tortuous atherosclerotic aorta. Calcified mediastinal lymph nodes. Abdomen: Nonobstructive bowel gas pattern. No free air. Moderate colonic stool burden. IMPRESSION: 1. Nonobstructive bowel gas pattern. 2. No consolidation. Electronically signed by: Neftaly Hoang MD (08/26/2020 5:25 AM) [facility] DICTATED AND SIGNED BY: NEFTALY HOANG MD DATE: 08/26/20520 CC: ANGELINA TORO MD; DONALD TELLO ~MTH0 0 Heart Score: C/O Chest Pain: N/A HEART Score for Chest Pain: HEART Score for Chest Pain Response (Comments) Value History Slighlty/Non-Suspicious 0 ECG Normal 0 Age > 65 2 Risk Factors No Risk Factors 0 Troponin < Normal Limit 0 Total 2 Risk Factors: Risk Factors: DM, Current or recent (<one month) smoker, HTN, HLP, family history of CAD, obesity. Risk Scores: Score 0 - 3: 2.5% MACE over next 6 weeks - Discharge Home Score 4 - 6: 20.3% MACE over next 6 weeks - Admit for Clinical Observation Score 7 - 10: 72.7% MACE over next 6 weeks - Early Invasive Strategies Course & Med Decision Making: Course & Med Decision Making Pertinent Labs and Imaging studies reviewed. (See chart for details) Patient encouraged to stay on a clear fluid diet. No solids. No milk products. Keep follow-up with surgery clinic. Reexam of no improvement. Tylenol ibuprofen for pain. Return if any concerns. Follow-up surgery clinic is [facility] for continuity of care. Keep follow-up primary care. Impression: 1. Abdomen pain 2. Constipation [] Dragon Disclaimer: Dragon Disclaimer: This electronic medical record was generated, in whole or in part, using a voice recognition dictation system. Departure Departure: Referrals: DONALD TELLO (PCP) Scotty Disclaimer This chart was dictated in whole or in part using Voice Recognition software in a busy, high-work load, and often noisy Emergency Department environment. It may contain unintended and wholly unrecognized errors or omissions. ANGELINA TORO MD Aug 26, 2020 04:03
[2020-08-26 04:42] LABS: BASO # 0.1 x10^3/uL (0.0-0.2); BASO % 1 % (0-3); EOS # 0.2 x10^3/uL (0.0-0.7); EOS % 2 % (0-3); HEMATOCRIT 37.6 % (36.0-47.0); HEMOGLOBIN 12.8 g/dL (12.0-15.5); LYMPH # 1.6 x10^3/uL (1.0-4.8); LYMPH % 21 % (24-48); MEAN CORPUSCULAR HEMOGLOBIN 32 pg (25-35); MEAN CORPUSCULAR HGB CONC 34 g/dL (31-37); MEAN CORPUSCULAR VOLUME 94 fL (79-100); MONO # 0.7 x10^3/uL (0.0-1.1); MONO % 9 % (0-9); NEUT # 4.8 x10^3uL (1.8-7.7); NEUT % 66 % (31-73); PLATELET COUNT 528 x10^3/uL (140-400); RED BLOOD COUNT 4.02 x10^6/uL (3.50-5.40); RED CELL DISTRIBUTION WIDTH 12.8 % (11.5-14.5); WHITE BLOOD COUNT 7.3 x10^3/uL (4.0-11.0)
[2020-08-26 04:45] LABS: CALCIUM 9.3 mg/dL (8.5-10.1); CREATININE 0.9 mg/dL (0.6-1.0); GFR 61.2; POTASSIUM 3.8 mmol/L (3.5-5.1)
[2020-08-26] MEDS: KETOROLAC 30 MG/ML VIAL. IVP ONE (04:45)
[2020-08-26 04:51] LABS: ALBUMIN 3.4 g/dL (3.4-5.0); DIRECT BILIRUBIN 0.1 mg/dL (0.0-0.2); TOTAL BILIRUBIN 0.8 mg/dL (0.2-1.0)
[2020-08-26] MEDS: IV RINGERS SOLUTION,LACTATED 1,000 ML IV SCH (05:00)
[2020-08-26] MEDS: ONDANSETRON PF 4 MG/2 ML VIAL. IVP ONE (05:00)
[2020-08-26] MEDS: FAMOTIDINE 20 MG/2 ML VIAL IVP ONE (05:00)
--- NOTE | 2020-08-26 05:27 | RAD ---
XR ABDOMEN COMP ACUTE INDICATION: Reason: abdomen pain, recent surgery / Spl. Instructions: / History: . COMPARISON STUDY: None. FINDINGS: Lungs: Normal lung volume. No pulmonary mass or consolidation. Calcified pulmonary granulomas. The tr acheobronchial tree and hilar structures are normal. Pleura: No pleural effusion or pneumothorax. Heart and Mediastinum: The cardiomediastinal silhouette is normal. Tortuous atherosclerotic aorta. Ca lcified mediastinal lymph nodes. Abdomen: Nonobstructive bowel gas pattern. No free air. Moderate colonic stool burden. IMPRESSION: 1. Nonobstructive bowel gas pattern. 2. No consolidation. Electronically signed by: Nathaniel Hoang MD (08/26/2020 5:25 AM) [facility]
[2020-08-26 06:19] LABS: CLARITY,URINE CLEAR; COLOR,URINE YELLOW
[2020-08-26 06:20] LABS: BILIRUBIN,URINE SMALL (NEG); GLUCOSE,URINE NEG (NEG); UROBILINOGEN,URINE 0.2 mg/dL (0.2 mg/dL)
[2020-08-26 06:21] LABS: NITRITE,URINE NEG (NEG)
[2020-08-26 06:22] LABS: BACTERIA,URINE 0 /HPF (0-FEW); SQUAMOUS EPITHELIAL CELL,UR FEW /LPF; WBC,URINE 0 /HPF (0-4)
[2020-08-26] MEDS ORDERED: MAGNESIUM HYDROXIDE 2,400 MG/30 ML ORAL.SUSP. PO ONE (06:30)
--- NOTE | 2020-08-27 06:29 | EKG ---
[address] [address] Test Date: 2020-08-26 Test Time: 04:39:10 Pat Name: ANT BECKFORD Department: Room: Gender: F Communications Engineer: EDNA : 1945 Requested By: ANGELINA TORO Order Number: [id number] Reading MD: Measurements Intervals [place] Rate: 85 P: -42 DC: 134 QRS: -31 QRSD: 72 T: -31 QT: 418 QTc: 504 Interpretive Statements SINUS RHYTHM ABNORMAL LEFT AXIS DEVIATION R-S TRANSITION ZONE IN V LEADS DISPLACED TO THE LEFT QRS(T) CONTOUR ABNORMALITY CONSISTENT WITH INFERIOR INFARCT AGE UNDETERMINED T ABNORMALITY IN ANTERIOR LEADS ABNORMAL ECG RI6.02 No previous ECG available for comparison
== END 2020-08-26 06:37 | disposition home or self-care (01) ==
LOC: ER 03:58
DX: K59.00 Constipation, unspecified (principal); Z88.0 Allergy status to penicillin; Z88.1 Allergy status to other antibiotic agents; Z88.2 Allergy status to sulfonamides
CPT/HCPCS: 36415; 74022; 80048; 80076; 81001; 82150; 82550; 83605; 83690; 85025; 87040; 93005; 96374; 99285; J1885

== ENCOUNTER → 2021-04-02 | Outpatient (CLI) | payer MEDICARE, OTHER ==
--- NOTE | 2021-04-02 10:12 | RAD ---
EXAM: Left foot, 3 views. HISTORY: Pain. COMPARISON: None. FINDINGS: 3 views of the left foot are obtained. There is no fracture, dislocation or subluxation. Th ere is a small plantar spur. There is mild degenerative spurring involving the tarsotarsal joints. Th ere is enthesopathy at Achilles tendon insertion. IMPRESSION: No acute osseous finding. Mild midfoot osteoarthritis. Electronically signed by: Hazel Sanchez MD (04/02/2021 10:10 AM) [id number]
== END ==
LOC: RAD 09:41
PROVIDERS: ATTEND Family Medicine
DX: M19.072 Primary osteoarthritis, left ankle and foot (principal); M76.62 Achilles tendinitis, left leg; M77.32 Calcaneal spur, left foot
CPT/HCPCS: 73630